=== PATIENT | male | born 1965 | race Caucasian/White ===

== ENCOUNTER → 2021-03-06 | Outpatient (REF) ==
[2021-03-06 12:22] LABS: POTASSIUM 4.3 mmol/L (3.5-5.1)
[2021-03-06 12:24] LABS: CALCIUM 9.7 mg/dL (8.3-10.5)
== END ==
LOC: LAB 09:10
PROVIDERS: Internal Medicine
DX: Z01.89 Encounter for other specified special examinations (principal)